=== PATIENT | female | born 1950 | race African-American/Black ===

== ENCOUNTER 2022-07-04 09:10 | Emergency (ER) | payer OTHER ==
[~2022-07-04] VITALS: Ht 172.7 cm; Wt 89.0 kg
[2022-07-04 09:57] LABS: BASOPHILS % 0.4 % (0.0-2.0); EOSINOPHILS % 2.2 % (0.0-5.0); HEMATOCRIT. 30.4 % (36.0-48.0); HEMOGLOBIN. 9.4 g/dL (12.0-16.0); LYMPHOCYTES % 13.1 % (20.0-50.0); MEAN CORPUSCULAR HEMOGLOBIN 25.7 pg (28.0-32.0); MEAN CORPUSCULAR VOLUME 82.6 fL (81.0-99.0); MEAN PLATELET VOLUME 8.5 fl (7.4-10.4); NEUTROPHILS % 77.3 % (40.0-76.0); PLATELET 255 x1000/uL (130-400); RED BLOOD CELL COUNT 3.68 mill/uL (4.2-5.4); RED CELL DISTRIBUTION WIDTH 18.5 % (11.6-14.6)
[2022-07-04 10:07] LABS: CHLORIDE 104 mEq/L (98-107); PROTHROMBIN TIME 10.5 sec (9.6-11.0)
[2022-07-04] MEDS ORDERED: ACETAMINOPHEN WITH CODEINE 300/30MG TABLET PO ONE (14:00)
[2022-07-04 15:46] VITALS: BP 153/68
[2022-07-04] MEDS ORDERED: ACETAMINOPHEN WITH CODEINE 300/30MG TABLET PO NR (16:45)
== END 2022-07-04 15:35 | disposition short-term general hospital (02) ==
LOC: ER 09:10
DX: R53.1 Weakness (principal); R53.83 Other fatigue; E11.9 Type 2 diabetes mellitus without complications; I10 Essential (primary) hypertension; Z98.890 Other specified postprocedural states; Z20.822 Contact with and (suspected) exposure to COVID-19
CPT/HCPCS: 36415; 71045; 80053; 83605; 84145; 85025; 85610; 87040; 87426; 93005; 99285; C9803

== ENCOUNTER 2023-08-25 16:20 | Inpatient (IN) | payer OTHER ==
[~2023-08-25] VITALS: Ht 177.8 cm; Wt 103.4 kg
[2023-08-25 17:57] LABS: BASOPHILS % 0.5 % (0.0-2.0); EOSINOPHILS % 1.8 % (0.0-5.0); HEMATOCRIT. 33.5 % (36.0-48.0); HEMOGLOBIN. 10.4 g/dL (12.0-16.0); LYMPHOCYTES % 14.5 % (20.0-50.0); MEAN CORPUSCULAR HEMOGLOBIN 25.5 pg (28.0-32.0); MEAN CORPUSCULAR VOLUME 82.3 fL (81.0-99.0); MEAN PLATELET VOLUME 9.2 fl (7.4-10.4); MONOCYTES % 6.5 % (2.0-8.0); NEUTROPHILS % 76.7 % (40.0-76.0); PLATELET 239 x1000/uL (130-400); RED BLOOD CELL COUNT 4.07 mill/uL (4.2-5.4); RED CELL DISTRIBUTION WIDTH 18.5 % (11.6-14.6); WHITE BLOOD COUNT 10.6 x1000/uL (4.5-11.0)
[2023-08-25 18:04] LABS: CHLORIDE 98 mEq/L (98-107); POTASSIUM 3.1 mEq/L (3.5-5.1); SODIUM 138 mEq/L (136-145)
[2023-08-25 18:05] LABS: CALCIUM 9.9 mg/dL (8.7-10.4); CARBON DIOXIDE 32 mEq/L (21-32)
[2023-08-25 18:10] LABS: GLUCOSE 240 mg/dL (70-105); UREA NITROGEN BLOOD 20 mg/dL (9-23)
[2023-08-25 18:12] LABS: ALANINE AMINOTRANSFERASE 14 IU/L (10-49); ALBUMIN 4.3 g/dL (3.2-4.8); ASPARTATE AMINOTRANSFERASE 20 IU/L (<34)
[2023-08-25 18:13] LABS: BILIRUBIN TOTAL 0.7 mg/dL (0.1-1.0); PROTEIN TOTAL 7.6 g/dL (6.0-8.3)
[2023-08-25 18:34] LABS: TROPONIN I HIGH SENSITIVITY 43 ng/L (3.0-34)
[2023-08-25] MEDS: POTASSIUM CHLORIDE 20MEQ/PACKET PO ONE (19:03)
[2023-08-25 21:02] LABS: TROPONIN I HIGH SENSITIVITY 43 ng/L (3.0-34)
[2023-08-25] MEDS ORDERED: CLONIDINE 0.1MG TABLET PO PRN (22:45)
[2023-08-25] MEDS ORDERED: ONDANSETRON HCL 4MG/2ML INJ IV PRN (22:45)
[2023-08-25] MEDS ORDERED: MAGNESIUM/ALUMINUM HYDROXIDE/SIMETHICONE 30ML UDC PO PRN (22:45)
[2023-08-25] MEDS ORDERED: GUAIFENESIN 200MG/10ML SUGAR FREE UDC PO PRN (22:45)
[2023-08-25] MEDS ORDERED: ACETAMINOPHEN 325MG TABLET PO PRN (22:45)
[2023-08-25] MEDS ORDERED: IPRATROPIUM/ALBUTEROL 0.5-3(2.5)MG/3ML NEB HHN PRN (22:45)
[2023-08-25] MEDS ORDERED: DOCUSATE SODIUM 100MG CAPSULE PO PRN (22:45)
[2023-08-25] MEDS ORDERED: AMLO5TAB88 PO (22:54)
[2023-08-25] MEDS ORDERED: HYDR25TA PO (22:54)
[2023-08-25] MEDS ORDERED: ALLO300T2 PO (22:54)
[2023-08-25] MEDS ORDERED: MIRA25TA PO (22:54)
[2023-08-25] MEDS ORDERED: METF-907 PO (22:54)
[2023-08-25] MEDS ORDERED: DULO60CA64 PO (22:54)
[2023-08-25] MEDS ORDERED: LOSA25TA26 PO (22:54)
[2023-08-25] MEDS ORDERED: OMEP20CA14 PO (22:54)
[2023-08-26] VITALS (8 sets, daily range): BP systolic 101–153; BP diastolic 45–83; PULSE 66–80; RESP 20; TEMP 97.7–99.6; O2SAT 97
[2023-08-26 00:09] LABS: CARBON DIOXIDE 33 mEq/L (21-32); CHLORIDE 99 mEq/L (98-107); D-DIMER 0.25 mg/L FEU (<0.50); POTASSIUM 3.9 mEq/L (3.5-5.1); PROTHROMBIN TIME 10.7 sec (9.6-11.0); SODIUM 140 mEq/L (136-145)
[2023-08-26] MEDS: ACETAMINOPHEN 325MG TABLET PO PRN (00:09)
[2023-08-26 00:10] LABS: CALCIUM 10.1 mg/dL (8.7-10.4)
[2023-08-26] MEDS ORDERED: MELO-106 PO (00:20)
[2023-08-26] MEDS ORDERED: MELOXICAM 7.5MG TABLET PO PRN (00:30)
[2023-08-26] MEDS: AMLODIPINE 5MG TABLET PO SCH (00:36)
[2023-08-26 01:37] LABS: ALANINE AMINOTRANSFERASE 13 IU/L (10-49); ALBUMIN 4.3 g/dL (3.2-4.8); ASPARTATE AMINOTRANSFERASE 19 IU/L (<34); BILIRUBIN TOTAL 0.6 mg/dL (0.1-1.0); GLUCOSE 205 mg/dL (70-105); PHOSPHORUS 2.7 mg/dL (2.5-4.9); PROTEIN TOTAL 7.4 g/dL (6.0-8.3); UREA NITROGEN BLOOD 18 mg/dL (9-23)
[2023-08-26 01:38] LABS: CHOLESTEROL 176 mg/dL (<200); HDL CHOLESTEROL 65 mg/dL (>65); IRON 32 ug/dL (50-170); TOTAL IRON BINDING CAPACITY 367 ug/dl (250-425); TRIGLYCERIDE 74 mg/dL (0-150)
[2023-08-26 01:39] LABS: LDL CHOLESTEROL 93 mg/dL (5-100); T4 FREE 0.99 ng/dL (0.89-1.76); THYROID STIMULATING HORMONE 1.13 uIU/mL (0.55-4.78)
[2023-08-26 06:17] LABS: CALCIUM 10.1 mg/dL (8.7-10.4); CARBON DIOXIDE 32 mEq/L (21-32); CHLORIDE 100 mEq/L (98-107); POTASSIUM 3.3 mEq/L (3.5-5.1); SODIUM 140 mEq/L (136-145)
[2023-08-26 06:22] LABS: BASOPHILS % 0.3 % (0.0-2.0); CREATINE KINASE MB FRACTION 2.3 ng/mL (0.5-3.6); CREATININE 0.9 mg/dL (0.6-1.0); EOSINOPHILS % 3.6 % (0.0-5.0); HEMATOCRIT. 30.2 % (36.0-48.0); HEMOGLOBIN. 9.5 g/dL (12.0-16.0); MEAN CORPUSCULAR HEMOGLOBIN 25.4 pg (28.0-32.0); MEAN CORPUSCULAR HGB CONC 31.3 g/dL (31.0-37.0); MEAN CORPUSCULAR VOLUME 81.1 fL (81.0-99.0); MEAN PLATELET VOLUME 9.5 fl (7.4-10.4); MONOCYTES % 7.6 % (2.0-8.0); NEUTROPHILS % 66.5 % (40.0-76.0); PLATELET 235 x1000/uL (130-400); RED BLOOD CELL COUNT 3.73 mill/uL (4.2-5.4); RED CELL DISTRIBUTION WIDTH 18.5 % (11.6-14.6); WHITE BLOOD COUNT 11.2 x1000/uL (4.5-11.0)
[2023-08-26 06:23] LABS: CREATINE KINASE 152 IU/L (34-145); GLUCOSE 119 mg/dL (70-105); UREA NITROGEN BLOOD 14 mg/dL (9-23)
[2023-08-26 06:25] LABS: PHOSPHORUS 2.6 mg/dL (2.5-4.9)
[2023-08-26] MEDS: OMEPRAZOLE 20MG CAPSULE EXTENDED RELEASE PO SCH (08:18)
[2023-08-26] MEDS: DULOXETINE HCL 60MG DR CAPSULE PO SCH (08:18)
[2023-08-26] MEDS: ASPIRIN 81MG EC TABLET PO SCH (08:18)
[2023-08-26] MEDS: MULTIVITAMINS,THER W-MINERALS TABLET PO SCH (08:18)
[2023-08-26] MEDS: ALLOPURINOL 300 MG TABLET PO SCH (08:19)
[2023-08-26] MEDS: ENOXAPARIN 30MG/0.3ML SYR SUBCUT SCH (08:20)
[2023-08-26] MEDS: LOSARTAN 25 MG TABLET PO SCH (08:20)
[2023-08-26] MEDS: HYDROCHLOROTHIAZIDE 25MG TABLET PO SCH (08:20)
[2023-08-26 08:50] LABS: TROPONIN I HIGH SENSITIVITY 44 ng/L (3.0-34)
[2023-08-26] MEDS ORDERED: DEXTROSE 50% WATER 50ML SYRINGE IV PRN (10:30)
[2023-08-26] MEDS: BLOOD SUGAR DIAGNOSTIC STRIP TEST SCH (13:20)
[2023-08-26] MEDS: INSULIN LISPRO 100 UNITS/ML SUBCUT SCH (13:20)
[2023-08-26 18:27] LABS: CREATINE KINASE MB FRACTION 1.6 ng/mL (0.5-3.6)
[2023-08-26] MEDS ORDERED: ATORVASTATIN CALCIUM 20MG TABLET PO SCH (21:00)
== END 2023-08-26 21:25 | disposition short-term general hospital (02) | DRG 69 ==
LOC: ER 16:20 → 7WST 19:43 → EDBEDREQ 19:44 → EDBEDREQTM 19:44
PROVIDERS: ADMIT Hospitalist; ATTEND Hospitalist
DX: G45.9 Transient cerebral ischemic attack, unspecified (principal); I21.A1 Myocardial infarction type 2; D50.9 Iron deficiency anemia, unspecified; I10 Essential (primary) hypertension; Z96.653 Presence of artificial knee joint, bilateral; E11.40 Type 2 diabetes mellitus with diabetic neuropathy, unspecified; M10.9 Gout, unspecified; Z79.899 Other long term (current) drug therapy; Z82.3 Family history of stroke; Z82.49 Family history of ischemic heart disease and other diseases of the circulatory system; Z88.2 Allergy status to sulfonamides
CPT/HCPCS: 36415; 80048; 80053; 80061; 82550; 82553; 82728; 82962; 83036; 83540; 83550; 83735; 83880; 84100; 84439; 84443; 84484; 85025; 85379; 93005; 93970; 99291; J1650; J1815